=== PATIENT | male | born 1985 | race Caucasian/White ===

== ENCOUNTER 2020-05-25 00:23 | Emergency (ER) | payer OTHER ==
[~2020-05-25] VITALS: Ht 182.9 cm; Wt 125.9 kg
[2020-05-25 00:27] VITALS: Ht 182.9 cm; Wt 125.9 kg
[2020-05-25] MEDS ORDERED: PRAVACHOL40 MG PO (00:28)
[2020-05-25] MEDS ORDERED: METFORMIN HCL500 M1 PO (00:28)
[2020-05-25 01:07] LABS: ANION GAP 13.5 mmol/L (8-16); CARBON DIOXIDE 25.6 mmol/L (21.0-32.0); CREATININE - SERUM 1.2 mg/dL (0.6-1.3); EOSINOPHILS 4.6 % (0-7); HEMATOCRIT 44.5 % (42.0-54.0); HEMOGLOBIN 15.1 g/dL (13.5-17.5); IMMATURE GRANULOCYTES 0.2 % (0-5); LYMPHOCYTES 22.6 % (15-50); MCH 28.8 pg (26.0-34.0); MCHC 33.9 g/dL (31.0-37.0); MCV 84.9 fL (80.0-100.0); MEAN PLATELET VOLUME 10.1 fL (7.4-10.4); NEUTROPHILS 59.6 % (40-80); PLATELET COUNT 247 10x3/uL (130-400); POTASSIUM - SERUM 4.1 mmol/L (3.5-5.1); RBC 5.24 10x6/uL (4.20-6.10); RDW 12.5 % (11.5-14.5)
[2020-05-25 01:13] LABS: ALBUMIN 3.6 g/dL (3.4-5.0); BILIRUBIN - TOTAL 0.73 mg/dL (0.2-1.3); PROTEIN - SERUM 7.9 g/dL (6.4-8.2)
[2020-05-25] MEDS ORDERED: STERAPRED 5MG 65 M1 PO (02:45)
[2020-05-25 03:43] VITALS: BP 132/88
== END 2020-05-25 03:44 | disposition home or self-care (01) ==
LOC: D.ER 00:23
PROVIDERS: Family Medicine
DX: M79.89 Other specified soft tissue disorders (principal); T78.40XA Allergy, unspecified, initial encounter; X58.XXXA Exposure to other specified factors, initial encounter; E11.9 Type 2 diabetes mellitus without complications; Z79.84 Long term (current) use of oral hypoglycemic drugs